=== PATIENT | male | born 1940 | race Caucasian/White ===

== ENCOUNTER 2020-10-24 22:18 | Emergency (ER) | payer MEDICARE, OTHER ==
--- NOTE | 2020-10-24 22:25 | ED Cardiac General ---
History of Present Illness General Stated Complaint: SOA Source: patient, EMS History of Present Illness Date Seen by Provider: Oct 24, 2020 Time Seen by Provider: 22:19 80-year-old male with hypertension, diabetes, coronary artery disease status post CABG x5 and most recent stress test 3 to 4 months ago that was normal presents with dizziness. Patient states that he was at home and get up which caused him to feel off balance so he sat down and felt like he was shaky and concerned he may have had low blood sugar. His gave him a bunch of sweets to eat and called EMS and by the time they arrived his blood sugar was 109. The dizziness is not rotational and is worse with standing improves lying flat. Patient states he is having some shortness of air as well. Worse than normal, no orthopnea, no cough, fevers. Patient denies any numbness, tingling, weakness. No other complaints. Allergies and Home Medications Allergies Coded Allergies: Penicillins (Verified Allergy, Unknown, 10/24/20) Patient Home Medication List Home Medication List Reviewed: Yes Review of Systems Review of Systems Constitutional: No chills; dizziness; No fever EENTM: No Blurred Vision, No Double Vision Respiratory: Denies Cough, Denies Orthopnea; Shortness of Air Cardiovascular: Denies Chest Pain, Denies Edema, Denies Irregular Heart Rate Gastrointestinal: Denies Abdomen Distended, Denies Abdominal Pain, Denies Constipated, Denies Diarrhea, Denies Nausea, Denies Vomiting Genitourinary: Denies Burning Skin: No lesions, No rash Psychiatric/Neurological: Denies Headache, Denies Numbness, Denies Paresthesia, Denies Weakness All Other Systems Reviewed Negative Unless Noted: Yes Past Nfvblyk-Jkbktq-Fnmkgu Hx Past Med/Social Hx: Reviewed Nursing Past Med/Soc Hx Patient Social History Alcohol Use: Regular Use Alcohol Beverage of Choice: Wine Smoking Status: Never a Smoker Past Medical History CABG, Orthopedic Respiratory: No Coronary Artery Disease, Hypertension Neurological: No Reproductive Disorders: No Sexually Transmitted Disease: No HIV/AIDS: No Genitourinary: No Gastrointestinal: No Musculoskeletal: No Diabetes, Non-Insulin dep Family Medical History Reviewed Nursing Family Hx Physical Exam Vital Signs Vital Signs - First Documented 10/24/20 22:18 Temp 36.4 Pulse 81 Resp 18 B/P (MAP) 177/68 (104) Pulse Ox 98 O2 Delivery Room Air Capillary Refill : 3 Height, Weight, BMI Height: '" Weight: lbs. oz. kg; BMI Method: General Appearance: No Apparent Distress, WD/WN HEENT: PERRL/EOMI, Normal ENT Inspection, Pharynx Normal Neck: Full Range of Motion, Normal Inspection, Non Tender, Supple; No JVD Respiratory: Chest Non Tender, Lungs Clear, Normal Breath Sounds, No Accessory Muscle Use Cardiovascular: Regular Rate, Rhythm, No Edema, No Murmur, Normal Peripheral Pulses Gastrointestinal: Normal Bowel Sounds Extremity: Normal Capillary Refill, Normal Inspection Neurologic/Psychiatric: Alert, Oriented x3, No Motor/Sensory Deficits, Normal Mood/Affect, profiler II-XII Norm as Tested Skin: Normal Color, Warm/Dry Lymphatic: No Adenopathy Progress/Results/Core Measures Results/Orders Lab Results Laboratory Tests Test 10/24/20 22:25 Range/Units White Blood Count 6.1 4.3-11.0 10^3/uL Red Blood Count 3.95 L 4.35-5.85 10^6/uL Hemoglobin 11.6 L 13.3-17.7 G/DL Hematocrit 35 L 40-54 % Mean Corpuscular Volume 89 80-99 FL Mean Corpuscular Hemoglobin 29 25-34 PG Mean Corpuscular Hemoglobin Concent 33 32-36 G/DL Red Cell Distribution Width 12.9 10.0-14.5 % Platelet Count 312 130-400 10^3/uL Mean Platelet Volume 10.1 7.4-10.4 FL Immature Granulocyte % (Auto) 1 % Neutrophils (%) (Auto) 43 42-75 % Lymphocytes (%) (Auto) 38 12-44 % Monocytes (%) (Auto) 13 H 0-12 % Eosinophils (%) (Auto) 5 0-10 % Basophils (%) (Auto) 1 0-10 % Neutrophils # (Auto) 2.6 1.8-7.8 X 10^3 Lymphocytes # (Auto) 2.3 1.0-4.0 X 10^3 Monocytes # (Auto) 0.8 0.0-1.0 X 10^3 Eosinophils # (Auto) 0.3 0.0-0.3 10^3/uL Basophils # (Auto) 0.1 0.0-0.1 10^3/uL Immature Granulocyte # (Auto) 0.0 0.0-0.1 10^3/uL Prothrombin Time 12.7 12.2-14.7 SEC INR Comment 0.9 0.8-1.4 Activated Partial Thromboplast Time 25 24-35 SEC D-Dimer 0.26 0.00-0.49 UG/ML Sodium Level 135 135-145 MMOL/L Potassium Level 4.1 3.6-5.0 MMOL/L Chloride Level 101 98-107 MMOL/L Carbon Dioxide Level 23 21-32 MMOL/L Anion Gap 11 5-14 MMOL/L Blood Urea Nitrogen 24 H 7-18 MG/DL Creatinine 1.61 H 0.60-1.30 MG/DL Estimat Glomerular Filtration Rate 42 BUN/Creatinine Ratio 15 Glucose Level 122 H 70-105 MG/DL Calcium Level 9.1 8.5-10.1 MG/DL Corrected Calcium 8.9 8.5-10.1 MG/DL Magnesium Level 1.5 L 1.6-2.4 MG/DL Total Bilirubin 0.2 0.1-1.0 MG/DL Aspartate Amino Transf (AST/SGOT) 12 5-34 U/L Alanine Aminotransferase (ALT/SGPT) 14 0-55 U/L Alkaline Phosphatase 109 40-136 U/L Troponin I < 0.30 <0.30 NG/ML Pro-B-Type Natriuretic Peptide 163.8 H <75.0 PG/ML Total Protein 6.8 6.4-8.2 GM/DL Albumin 4.2 3.2-4.5 GM/DL My Orders Orders - WALI COTTO MD Cbc With Automated Diff (10/24/20 22:21) Magnesium (10/24/20 22:21) Chest 1 View Ap/Pa Only (10/24/20 22:21) Ekg Tracing (10/24/20 22:21) Comprehensive Metabolic Panel (10/24/20 22:21) Protime With Inr (10/24/20 22:21) Partial Thromboplastin Time (10/24/20 22:21) O2 (10/24/20 22:21) Monitor-Rhythm Ecg Trace Only (10/24/20 22:21) Ed Iv/Invasive Line Start (10/24/20 22:21) Troponin I Fs (10/24/20 22:21) Probnp Fs (10/24/20 22:21) Orthostatic Vital Signs (Adult (10/24/20 22:21) Fibrin Degradation Products (10/24/20 22:21) Lactated Ringers (Lr 1000 Ml Iv Solution (10/24/20 22:45) Vital Signs/I&O 10/24/20 10/24/20 22:18 22:46 Temp 36.4 Pulse 81 64 68 79 Resp 18 B/P (MAP) 177/68 (104) 138/60 (86) 139/61 (87) 155/67 (96) Pulse Ox 98 O2 Delivery Room Air Progress Progress Note : Progress Note 2300 - pt feeling better. at bedside. discussed prelim normal results. will recheck after ivf infusion 2324 -patient feels back to baseline. 80-year-old male with history of CAD, hypertension, diabetes presenting with dizziness and shortness of air. Symptoms of all resolved since arrival. Chest x-ray negative for pneumonia, pleural effusions, signs of CHF exacerbation. Lab work-up reassuring with normal D-dimer to help exclude PE, normal electrolytes, normal EKG and troponin to help rule out ACS. Creatinine is 1.6 without known baseline. Discussed need to push fluids and have her labs rechecked this week. Recommend increase fluid intake and see PCP this week. Patient voiced understanding and agreed with plan of care. Discussed reasons to return to the emergency room. Initial ECG Impression Date: Oct 24, 2020 Initial ECG Impression Time: 22:26 Initial ECG Rate: 66 Initial ECG Rhythm: Normal Sinus Initial ECG Intervals: QRS (normal) Initial ECG Impression: 1st Degree AV Block Diagnostic Imaging Diagonstic Imaging: Xray Plain Films/CT/US/NM/MRI: chest Comments no acute findings Reviewed: Reviewed by Me Departure Impression Primary Impression: Dizziness Additional Impressions: Orthostatic hypotension Shortness of breath Disposition: HOME, SELF-CARE Condition: Improved Departure-Patient Inst. Decision time for Depature: 23:28 Patient Instructions: Vertigo (a Type of Dizziness), Orthostatic Hypotension WALI COTTO MD Oct 24, 2020 22:25
[2020-10-24 22:32] LABS: BASOPHILS # (AUTO) 0.1 10^3/uL (0.0-0.1); BASOPHILS % (AUTO) 1 % (0-10); EOSINOPHILS # (AUTO) 0.3 10^3/uL (0.0-0.3); EOSINOPHILS % (AUTO) 5 % (0-10); HEMATOCRIT 35 % (40-54); HEMOGLOBIN 11.6 G/DL (13.3-17.7); LYMPHOCYTES # (AUTO) 2.3 X 10^3 (1.0-4.0); LYMPHOCYTES % (AUTO) 38 % (12-44); MEAN CORPUSCULAR HEMOGLOBIN 29 PG (25-34); MEAN CORPUSCULAR HGB CONC 33 G/DL (32-36); MEAN CORPUSCULAR VOLUME 89 FL (80-99); MEAN PLATELET VOLUME 10.1 FL (7.4-10.4); MONOCYTES # (AUTO) 0.8 X 10^3 (0.0-1.0); MONOCYTES % (AUTO) 13 % (0-12); NEUTROPHILS # (AUTO) 2.6 X 10^3 (1.8-7.8); NEUTROPHILS % (AUTO) 43 % (42-75); PLATELET COUNT 312 10^3/uL (130-400); WHITE BLOOD COUNT 6.1 10^3/uL (4.3-11.0)
[2020-10-24 22:44] LABS: INR 0.9 (0.8-1.4); PROTHROMBIN TIME PATIENT 12.7 SEC (12.2-14.7)
[2020-10-24] MEDS ORDERED: LACTATED RINGERS 1,000 ML IV SCH (22:45)
[2020-10-24 22:46] VITALS: BP_SYST 138; BP_SYST 139; BP_SYST 155; BP_DIAS 60; BP_DIAS 61; BP_DIAS 67
[2020-10-24 22:51] LABS: CALCIUM 9.1 MG/DL (8.5-10.1); CREATININE SERUM 1.61 MG/DL (0.60-1.30); POTASSIUM 4.1 MMOL/L (3.6-5.0)
[2020-10-24 22:52] LABS: ALBUMIN 4.2 GM/DL (3.2-4.5); BILIRUBIN,TOTAL 0.2 MG/DL (0.1-1.0); MAGNESIUM 1.5 MG/DL (1.6-2.4); TOTAL PROTEIN 6.8 GM/DL (6.4-8.2)
[2020-10-24 23:29] VITALS: BP 125/56
--- NOTE | 2020-10-25 06:28 | Diagnostic Imaging Report ---
INDICATION: Coronary disease. COMPARISON: None. FINDINGS: Single view of the chest demonstrates clear lungs bilaterally. The heart is normal. There is no pneumothorax but osseous structures normal. Sternal wires midline. IMPRESSION: Negative chest. Dictated by: Dictated on workstation # [id number]
== END 2020-10-24 23:38 | disposition home or self-care (01) ==
LOC: ER FS 22:24
DX: I95.1 Orthostatic hypotension (principal); I25.10 Atherosclerotic heart disease of native coronary artery without angina pectoris; E11.9 Type 2 diabetes mellitus without complications; Z95.1 Presence of aortocoronary bypass graft
CPT/HCPCS: 36415; 71045; 80053; 83735; 83880; 84484; 85025; 85379; 85610; 85730; 93005; 93041; 96360

== ENCOUNTER 2022-06-06 06:05 | Inpatient (IN) | payer MEDICARE, OTHER ==
[~2022-06-06] VITALS: Ht 175.2 cm; Wt 84.0 kg
[2022-06-06] MEDS ORDERED: NS IV 500 ML 500 ML IV STA (06:17)
--- NOTE | 2022-06-06 06:22 | ED General ---
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 He states he was walking down the stairs night, the steps were very narrow, he missed 1 and fell down at least 3 steps hitting his head. He did not have any headache or symptoms that night so he did not see anybody. Starting later that night however, he started to feel dizzy where the room was spinning when he would move. Seems worse in the morning when he is trying to get up. He was try to get up this morning, the room was spinning, he felt dizzy, and he called EMS. Similar happened roughly 20 years ago with no formal diagnosis. He denies any acute hearing loss, ear ringing, weakness, numbness, vision changes when he is sitting still, nausea, vomiting, chest pain, shortness of breath, abdominal pain, rash, or any other concerns. He denies being sick recently. He takes a baby aspirin daily but no blood thinners. Allergies and Home Medications Allergies Coded Allergies: Penicillins (Verified Allergy, Unknown, 10/24/20) Patient Home Medication List Home Medication List Reviewed: Yes Aspirin (Aspirin EC) 81 Mg Tablet.dr, 81 MG PO DAILY, (Reported) Entered as Reported by: JARED TORRES on 06/06/221414 Last Action: Reviewed Carvedilol (Carvedilol) 3.125 Mg Tablet, 3.125 MG PO BID, (Reported) Entered as Reported by: JARED TORRES on 06/06/221414 Last Action: Reviewed Fenofibrate (Fenofibrate) 160 Mg Tablet, 160 MG PO DAILY, (Reported) Entered as Reported by: JARED TORRES on 06/06/221414 Last Action: Reviewed Insulin Detemir (Levemir Flextouch) 100 Unit/Ml (3 Ml) Insuln.pen, 34 UNITS SC HS, (Reported) Entered as Reported by: JARED TORRES on 06/06/221414 Last Action: Reviewed Levothyroxine Sodium (Levothyroxine Sodium) 50 Mcg Tablet, 50 MCG PO DAILY, (Reported) Entered as Reported by: JARED TORRES on 06/06/221414 Last Action: Reviewed Meclizine HCl (Meclizine HCl) 25 Mg Tablet, 25 MG PO Q12H PRN for VERTIGO Prescribed by: TRICE ANNA on 06/06/22644 Last Action: Reviewed Metformin HCl (Metformin HCl) 1,000 Mg Tablet, 1,000 MG PO BID, (Reported) Entered as Reported by: JARED TORRES on 06/06/221414 Last Action: Reviewed Ondansetron (Ondansetron Odt) 4 Mg Tab.rapdis, 4 MG SL Q6H PRN for NAUSEA/VOMITING Prescribed by: TRICE ANNA on 06/06/22644 Last Action: Reviewed Sertraline HCl (Sertraline HCl) 50 Mg Tablet, 50 MG PO DAILY, (Reported) Entered as Reported by: JARED TORRES on 06/06/221414 Last Action: Reviewed Simvastatin (Simvastatin) 80 Mg Tablet, 80 MG PO HS, (Reported) Entered as Reported by: JARED TORRES on 06/06/221414 Last Action: Reviewed Tamsulosin HCl (Flomax) 0.4 Mg Cap, 0.4 MG PO 1700 BEFORE DINNER, (Reported) Entered as Reported by: JARED TORRES on 06/06/221414 Last Action: Reviewed Ubidecarenone (Coq-10) 100 Mg Capsule, 100 MG PO DAILY, (Reported) Entered as Reported by: JARED TORRES on 06/06/221414 Last Action: Reviewed Review of Systems Review of Systems Constitutional: No fever EENTM: other (Vertigo) Respiratory: no symptoms reported Cardiovascular: no symptoms reported Gastrointestinal: no symptoms reported Genitourinary: no symptoms reported Musculoskeletal: no symptoms reported Skin: no symptoms reported Psychiatric/Neurological: See HPI Hematologic/Lymphatic: No Symptoms Reported Immunological/Allergic: no symptoms reported All Other Systems Reviewed Negative Unless Noted: Yes Past Uhbkrmt-Rmfopy-Ivonhh Hx Patient Social History Tobacco Use?: No Use of E-Cig and/or Vaping dev: No Substance use?: No Alcohol Use?: No Pt feels they are or have been: No Past Medical History Surgeries: Yes Cardiac Respiratory: No Cardiac: Yes High Cholesterol, Hypertension Neurological: No Reproductive Disorders: No Sexually Transmitted Disease: No HIV/AIDS: No Genitourinary: No Gastrointestinal: No Musculoskeletal: No Endocrine: Yes Diabetes, Insulin dep HEENT: No Cancer: No Psychosocial: No Integumentary: No Blood Disorders: No Physical Exam Vital Signs Vital Signs - First Documented 06/06/22 06:07 Temp 36.3 Pulse 68 Resp 18 B/P (MAP) 180/87 (118) Pulse Ox 99 O2 Delivery Room Air Capillary Refill : Height, Weight, BMI Height: '" Weight: lbs. oz. kg; BMI Method: General Appearance: No Apparent Distress, WD/WN Eyes: Bilateral Eye Normal Inspection, Bilateral Eye PERRL, Bilateral Eye EOMI HEENT: PERRL/EOMI, TMs Normal, Normal ENT Inspection, Pharynx Normal Neck: Full Range of Motion, Normal Inspection, Non Tender, Supple Respiratory: Chest Non Tender, Lungs Clear, Normal Breath Sounds, No Accessory Muscle Use, No Respiratory Distress Cardiovascular: Regular Rate, Rhythm, No Edema, Normal Peripheral Pulses Gastrointestinal: Normal Bowel Sounds, Non Tender, Soft; No Distended, No Guarding Back: Normal Inspection, No CVA Tenderness, No Vertebral Tenderness Extremity: Normal Capillary Refill, Normal Inspection, Normal Range of Motion, Non Tender, No Calf Tenderness, No Pedal Edema Neurologic/Psychiatric: Alert, Oriented x3, No Motor/Sensory Deficits, Normal Mood/Affect, emergency doctor II-XII Norm as Tested, Other (Normal upwalb-vr-puze, normal eknk-md-fblh, normal word finding, positive head impulse test, lateral gaze nystagmus, negative test of skew) Skin: Normal Color, Warm/Dry Lymphatic: No Adenopathy Progress/Results/Core Measures Suspected Sepsis SIRS Temperature: Pulse: Respiratory Rate: Laboratory Tests 06/06/22 06:14: White Blood Count 5.8 Blood Pressure / Mean: Laboratory Tests 06/06/22 06:14: Creatinine 1.23, INR Comment 0.9, Platelet Count 350, Total Bilirubin 0.4 Results/Orders Lab Results Laboratory Tests Test 06/06/22 06:14 Range/Units White Blood Count 5.8 4.3-11.0 10^3/uL Red Blood Count 3.97 L 4.30-5.52 10^6/uL Hemoglobin 11.9 L 13.3-17.7 g/dL Hematocrit 34 L 40-54 % Mean Corpuscular Volume 85 80-99 fL Mean Corpuscular Hemoglobin 30 25-34 pg Mean Corpuscular Hemoglobin Concent 35 32-36 g/dL Red Cell Distribution Width 12.4 10.0-14.5 % Platelet Count 350 130-400 10^3/uL Mean Platelet Volume 11.8 9.0-12.2 fL Immature Granulocyte % (Auto) 0 % Neutrophils (%) (Auto) 43 42-75 % Lymphocytes (%) (Auto) 40 12-44 % Monocytes (%) (Auto) 10 0-12 % Eosinophils (%) (Auto) 6 0-10 % Basophils (%) (Auto) 1 0-10 % Neutrophils # (Auto) 2.5 1.8-7.8 10^3/uL Lymphocytes # (Auto) 2.3 1.0-4.0 10^3/uL Monocytes # (Auto) 0.6 0.0-1.0 10^3/uL Eosinophils # (Auto) 0.3 0.0-0.3 10^3/uL Basophils # (Auto) 0.1 0.0-0.1 10^3/uL Immature Granulocyte # (Auto) 0.0 0.0-0.1 10^3/uL Prothrombin Time 12.5 12.2-14.7 SEC INR Comment 0.9 0.8-1.4 Activated Partial Thromboplast Time 25 24-35 SEC Sodium Level 132 L 135-145 MMOL/L Potassium Level 6.1 H 3.6-5.0 MMOL/L Chloride Level 99 98-107 MMOL/L Carbon Dioxide Level 21 21-32 MMOL/L Anion Gap 12 5-14 MMOL/L Blood Urea Nitrogen 18 7-18 MG/DL Creatinine 1.23 0.60-1.30 MG/DL Estimat Glomerular Filtration Rate 59 BUN/Creatinine Ratio 15 Glucose Level 221 H 70-105 MG/DL Calcium Level 8.8 8.5-10.1 MG/DL Corrected Calcium 8.9 8.5-10.1 MG/DL Magnesium Level 1.8 1.6-2.4 MG/DL Total Bilirubin 0.4 0.1-1.0 MG/DL Aspartate Amino Transf (AST/SGOT) 50 H 5-34 U/L Alanine Aminotransferase (ALT/SGPT) 17 0-55 U/L Alkaline Phosphatase 120 40-136 U/L Troponin I 0.36 *H <0.30 NG/ML Total Protein 7.2 6.4-8.2 GM/DL Albumin 3.9 3.2-4.5 GM/DL My Orders Orders - TRICE ANNA MD Cbc With Automated Diff (06/06/22 06:17) Comprehensive Metabolic Panel (06/06/22 06:17) Magnesium (06/06/22 06:17) Protime With Inr (06/06/22 06:17) Partial Thromboplastin Time (06/06/22 06:17) Troponin I Fs (06/06/22 06:17) Ct Head Wo (06/06/22 06:17) Ns Iv 500 Ml (Sodium Chloride 0.9%) (06/06/22 06:17) Meclizine Tablet (Antivert Tablet) (06/06/22 06:30) Ondansetron Injection (Zofran Injectio (06/06/22 06:30) Ekg Tracing (06/06/22 06:17) Ed Iv/Invasive Line Start (06/06/22 06:37) Aspirin Chewable Tablet (Baby Aspirin Ch (06/06/22 07:15) Chest 1 View Ap/Pa Only (06/06/22 07:01) Medications Given in ED Vital Signs/I&O 06/06/22 06/06/22 06:07 07:47 Temp 36.3 36.5 Pulse 68 63 Resp 18 16 B/P (MAP) 180/87 (118) 167/82 Pulse Ox 99 99 O2 Delivery Room Air Room Air Capillary Refill : Progress Note : Progress Note 82-year-old male presenting after a remote fall last week as well as dizziness. ABCs were intact and vitals were stable on presentation. Neuro exam is completely intact with no focal deficits. He does get vertigo with changing in positions of his head which fits more of a peripheral cause of his vertigo. No recent illness, no hearing loss, no ringing in his ears making vestibular neuritis and labyrinthitis less likely. Denies any chest pain or concerning symptoms associated with that. CT head ordered since he fell and hit his head. Basic labs obtained to assess electrolytes. Given some fluids, meclizine, and Zofran. Rosaura-Hallpike was positive and symptoms did improve some with the Giovani maneuver. Unfortunately his troponin was positive. Given his cardiac history it is possible he had a cardiac event. Called Dr. Jeffries and Dr. Choi to discuss the case. The patient will be admitted for further evaluation and management. ECG Initial ECG Impression Date: Jun 06, 2022 Initial ECG Impression Time: 06:32 Initial ECG Rate: 59 Initial ECG Rhythm: S.Dieter Comment Narrow QRS, borderline normal axis, no significant ST changes, T wave flattening in the inferior and lateral leads, appears similar to prior EKG Diagnostic Imaging Diagonstic Imaging: CT (head) Departure Impression Primary Impression: NSTEMI (non-ST elevated myocardial infarction) Additional Impression: Dizziness Disposition: 30 STILL A PATIENT Condition: Stable Admissions Decision to Admit Reason: Admit from ER (General) Decision to Admit/Date: Jun 06, 2022 Time/Decision to Admit Time: 06:55 Transfer Method of Transfer: EMS Departure-Patient Inst. Decision time for Depature: 07:10 Referrals: DEISI AMIN MD NO,LOCAL PHYSICIAN (PCP) Primary Care Physician Scripts Ondansetron (Ondansetron Odt) 4 Mg Tab.rapdis 4 MG SL Q6H PRN for NAUSEA/VOMITING for 5 Days, #20 TAB Prov: TRICE ANNA MD 06/06/22 Meclizine HCl (Meclizine HCl) 25 Mg Tablet 25 MG PO Q12H PRN for VERTIGO for 14 Days, #28 TAB Prov: TRICE ANNA MD 06/06/22 TRICE ANNA MD Jun 06, 2022 06:22
[2022-06-06 06:29] LABS: BASOPHILS # (AUTO) 0.1 10^3/uL (0.0-0.1); BASOPHILS % (AUTO) 1 % (0-10); EOSINOPHILS # (AUTO) 0.3 10^3/uL (0.0-0.3); EOSINOPHILS % (AUTO) 6 % (0-10); HEMATOCRIT 34 % (40-54); HEMOGLOBIN 11.9 g/dL (13.3-17.7); LYMPHOCYTES # (AUTO) 2.3 10^3/uL (1.0-4.0); LYMPHOCYTES % (AUTO) 40 % (12-44); MEAN CORPUSCULAR HEMOGLOBIN 30 pg (25-34); MEAN CORPUSCULAR HGB CONC 35 g/dL (32-36); MEAN CORPUSCULAR VOLUME 85 fL (80-99); MEAN PLATELET VOLUME 11.8 fL (9.0-12.2); MONOCYTES # (AUTO) 0.6 10^3/uL (0.0-1.0); MONOCYTES % (AUTO) 10 % (0-12); NEUTROPHILS # (AUTO) 2.5 10^3/uL (1.8-7.8); NEUTROPHILS % (AUTO) 43 % (42-75); PLATELET COUNT 350 10^3/uL (130-400); WHITE BLOOD COUNT 5.8 10^3/uL (4.3-11.0)
[2022-06-06] MEDS ORDERED: MECLIZINE 25 MG (ANTIVERT) TAB PO ONE (06:30)
[2022-06-06] MEDS ORDERED: ONDANSETRON 4 MG/2 ML (SDV) Z0FRAN IVP ONE (06:30)
[2022-06-06 06:44] LABS: INR 0.9 (0.8-1.4); PROTHROMBIN TIME PATIENT 12.5 SEC (12.2-14.7)
[2022-06-06] MEDS ORDERED: MECL-149 PO (06:45)
[2022-06-06] MEDS ORDERED: ONDA4TAB11 SL (06:45)
[2022-06-06 06:50] LABS: POTASSIUM 6.1 MMOL/L (3.6-5.0)
[2022-06-06 06:52] LABS: BILIRUBIN,TOTAL 0.4 MG/DL (0.1-1.0); CALCIUM 8.8 MG/DL (8.5-10.1); CREATININE SERUM 1.23 MG/DL (0.60-1.30); MAGNESIUM 1.8 MG/DL (1.6-2.4)
[2022-06-06 06:55] LABS: ALBUMIN 3.9 GM/DL (3.2-4.5); TOTAL PROTEIN 7.2 GM/DL (6.4-8.2)
--- NOTE | 2022-06-06 07:07 | Diagnostic Imaging Report ---
PROCEDURE: CT head without contrast. TECHNIQUE: Multiple contiguous axial images were obtained through the brain without the use of intravenous contrast. Auto Exposure Controls were utilized during the CT exam to meet ALARA standards for radiation dose reduction. INDICATION: Dizziness x1 week after a fall The ventricles are normal in size, shape and position. There are no masses or hemorrhages. There are no extra-axial fluid collections. There are no skull fractures seen. There is a lacunar infarct in the right basal ganglia. The more inferior component of this has undergone cystic transformation consistent with a chronic infarct. The more superior portion is hypodense but less distinct and could be a subacute component. IMPRESSION: Large lacunar infarct right basal ganglia at least partially old but an acute component cannot be excluded. If there is clinical question further evaluation with MRI would be more sensitive. Dictated by: Dictated on workstation # [id number]
[2022-06-06] MEDS ORDERED: ASPIRIN 81 MG CHEW (CHILDREN'S ASA) PO ONE (07:15)
--- NOTE | 2022-06-06 07:48 | Diagnostic Imaging Report ---
Indication: 82-year-old male with myocardial infarction Comparisons: 10/25/2020 Findings: Single view of the chest shows normal heart, pleura and diaphragms. No consolidations are seen. There is no effusion or pneumothorax. There is aortic calcific atherosclerosis. There is a previous median sternotomy. Soft tissues and bony thorax are unchanged. IMPRESSION: 1. No acute cardiac pulmonary changes by plain radiographic criteria. 2. There is a previous CABG. Dictated by: Dictated on workstation # [id number]
[2022-06-06] MEDS ORDERED: CATHETER FLUSH 10 ML SYR IV PRN (09:00)
--- NOTE | 2022-06-06 09:11 | Consultation-Cardiology ---
HPI-Cardiology Cardiology Consultation: Date of Consultation 06/06/22 Time Seen by a Provider: 08:30 Date of Admission 06-06-22 Attending Physician Roland Martinez MD Admitting Physician Admitting Physician: Jennifer Jeffries MD Attending Physician: Jennifer Jeffries MD Consulting Physician Cholo Choi MD HPI: Chief Complaint: Dizziness Mr. Mahmood is an 82 yr old male who has been admitted to [facility] from the [facility] ED. He reports last week he was going into the basement when he mis-stepped and fell hitting his head. He denies any loss of consciousness. He denies any c/o CP, SOB, palpitations, syncope or near syncope. He reports he had significant dizziness following his fall that would resolve when he would sit down and hold on to something. He reports the dizziness did improve over a few days. However this morning he developed significant dizziness that would not resolve. He reports his brought him to the ED this morning. He states the dizziness is better, but not completely resolved. No c/o syncope or near syncope. He sees Dr. Summers at [facility] in [place] for cardiology care. He reports he saw him approx 8 months ago at which time he had a stress test and echo which he reports were normal. Review of Systems-Cardiology Review of Systems Constitutional: No chills, No fever, No malaise Eyes: No vision change Ears/Nose/Throat: No epistaxis, No recent hearing loss Respiratory: As described under HPI Cardiovascular: As described under HPI Gastrointestinal: No constipation, No diarrhea, No nausea, No vomiting Genitourinary: No dysuria, No hematuria Musculoskeletal: no symptoms reported Skin: No rash on exposed areas, No ulcerations on exposed areas Psychiatric/Neurological: As described under HPI; No anxiety, No depression, No seizure, No focal weakness, No syncope Hematologic: No bleeding abnormalities All Other Systems Reviewed Negative Unless Noted: Yes AWA-Tliysg-Jyzolx Hx Patient Social History Have you traveled recently?: No Alcohol Use?: No Pt feels they are or have been: No Past Medical History PMH As described under Assessment. Family Medical History Family Medical History: He reports his father had CAD dx in his 40's. He reports a brother with CAD. Allergies and Home Medications Allergies Coded Allergies: Penicillins (Verified Allergy, Unknown, 10/24/20) Patient Home Medication List Meclizine HCl (Meclizine HCl) 25 Mg Tablet, 25 MG PO Q12H PRN for VERTIGO Prescribed by: TRICE ANNA on 06/06/2245 Ondansetron (Ondansetron Odt) 4 Mg Tab.rapdis, 4 MG SL Q6H PRN for NAUSEA/VOMITING Prescribed by: TRICE ANNA on 06/06/2245 Physical Exam-Cardiology Physical Exam Vital Signs/I&O 06/06/22 06/06/22 06:07 07:47 Temp 36.3 36.5 Pulse 68 63 Resp 18 16 B/P (MAP) 180/87 (118) 167/82 Pulse Ox 99 99 O2 Delivery Room Air Room Air Capillary Refill : Less Than 3 Seconds Constitutional: AAO x 3, well-developed, well-nourished HEENT: PERRL, hearing is well preserved, oral hygience is good Neck: No carotid bruit; carotid pulses are 2 + bilaterally Respiratory: No accessory muscle use, No respiratory distress; chest expansion is symmetric, chest is bilaterally symmetric, lungs clear to auscultation Cardiovascular: regular rate-rhythm; No JVD; S1 and S2 Gastrointestinal: No tender; soft, round, audible bowel sounds Extremities: no lower extremity edema bilateral Neurologic/Psychiatric: grossly intact (moves all extremities) Skin: No rash on exposed areas, No ulcerations on exposed areas Data Review Labs Laboratory Tests 06/06/22 06:14: White Blood Count 5.8, Red Blood Count 3.97L, Hemoglobin 11.9L, Hematocrit 34L, Mean Corpuscular Volume 85, Mean Corpuscular Hemoglobin 30, Mean Corpuscular Hemoglobin Concent 35, Red Cell Distribution Width 12.4, Platelet Count 350, Mean Platelet Volume 11.8, Immature Granulocyte % (Auto) 0, Neutrophils (%) ( Auto) 43, Lymphocytes (%) (Auto) 40, Monocytes (%) (Auto) 10, Eosinophils (%) (Auto) 6, Basophils (%) (Auto) 1, Neutrophils # (Auto) 2.5, Lymphocytes # (Auto) 2.3, Monocytes # (Auto) 0.6, Eosinophils # (Auto) 0.3, Basophils # (Auto) 0.1, Immature Granulocyte # (Auto) 0.0, Prothrombin Time 12.5, INR Comment 0.9, Activated Partial Thromboplast Time 25, Sodium Level 132L, Potassium Level 6.1H, Chloride Level 99, Carbon Dioxide Level 21, Anion Gap 12, Blood Urea Nitrogen 18, Creatinine 1.23, Estimat Glomerular Filtration Rate 59, BUN/Creatinine Ratio 15, Glucose Level 221H, Calcium Level 8.8, Corrected Calcium 8.9, Magnesium Level 1.8, Total Bilirubin 0.4, Aspartate Amino Transf (AST/SGOT) 50H, Alanine Aminotransferase (ALT/SGPT) 17, Alkaline Phosphatase 120, Troponin I 0.36*H, Total Protein 7.2, Albumin 3.9 Laboratory Tests 06/06/22 06:14 Radiology NAME: MITESH MAHMOOD V MED REC#: [id number] PT STATUS: REG ER : 1940 PHYSICIAN: TRICE ANNA MD ADMIT DATE: 06/06/22/ER FS Signed Date of Exam:06/06/22 CT HEAD WO PROCEDURE: CT head without contrast. TECHNIQUE: Multiple contiguous axial images were obtained through the brain without the use of intravenous contrast. Auto Exposure Controls were utilized during the CT exam to meet ALARA standards for radiation dose reduction. INDICATION: Dizziness x1 week after a fall The ventricles are normal in size, shape and position. There are no masses or hemorrhages. There are no extra-axial fluid collections. There are no skull fractures seen. There is a lacunar infarct in the right basal ganglia. The more inferior component of this has undergone cystic transformation consistent with a chronic infarct. The more superior portion is hypodense but less distinct and could be a subacute component. IMPRESSION: Large lacunar infarct right basal ganglia at least partially old but an acute component cannot be excluded. If there is clinical question further evaluation with MRI would be more sensitive. Dictated by: Dictated on workstation # [id number] Dict: 06/06/22701 Trans: 06/06/22705 [facility] [id number] Interpreted by: TIFFANY OLIVEIRA MD Electronically signed by: TIFFANY OLIVEIRA MD 06/06/22705 NAME: MITESH MAHMOOD V MED REC#: [id number] PT STATUS: REG ER : 1940 PHYSICIAN: TRICE ANNA MD ADMIT DATE: 06/06/22/ER FS Draft Date of Exam:06/06/22 CHEST 1 VIEW AP/PA ONLY Indication: 82-year-old male with myocardial infarction Comparisons: 10/25/2020 Findings: Single view of the chest shows normal heart, pleura and diaphragms. No consolidations are seen. There is no effusion or pneumothorax. There is aortic calcific atherosclerosis. There is a previous median sternotomy. Soft tissues and bony thorax are unchanged. IMPRESSION: 1. No acute cardiac pulmonary changes by plain radiographic criteria. 2. There is a previous CABG. Dictated on workstation # [id number] Dict: 06/06/2209 Trans: 06/06/22 0747 [facility] [id number] Interpreted by: CELY MCMAHON MD Electronically signed by: ECG Impression ECG Initial ECG Impression: Sinus Bradycardia A/P-Cardiology Assessment/Admission Diagnosis S/P mechanical fall Dizziness of undetermined etiology post fall Mildly elevated troponin - no c/o CP H/O CAD - CABG x 5 vessel approx 7 yrs ago at [facility] - reports stress test approx 8 months ago at [facility] which was normal H/O CVA approx 15 yrs ago - ? new CVA according to CT done today - awaiting MRI - management per medical services HLD DM 2 DICK DUMAS Jun 06, 2022 09:11
[2022-06-06] MEDS ORDERED: GADOTERATE 0.5 MMOL/ML (CLARISCAN) 20 ML VIAL IV ONE (09:30)
[2022-06-06 09:46] VITALS: BP 167/82
--- NOTE | 2022-06-06 10:02 | Diagnostic Imaging Report ---
PROCEDURE: MR imaging of the brain with and without contrast. TECHNIQUE: Multiplanar, multisequence MR imaging of the brain was performed with and without contrast. INDICATION: Dizziness. Fall down a flight of stairs. COMPARISON: CT head on 06/06/2022. FINDINGS: No acute ischemia, mass, or hemorrhage. No abnormal enhancement. Old lacunar infarct is seen in the right basal ganglia. There is surrounding gliosis. Additional focal areas of T2 hyperintense signal are scattered in the periventricular and subcortical white matter. The ventricles and cortical sulci are mildly prominent. The basilar cisterns are symmetric and unremarkable. The sellar and suprasellar regions have a normal appearance. The brainstem and posterior fossa are unremarkable. Retained secretions are seen in the anterior ethmoid sinuses and bilateral maxillary sinuses. The mastoid air cells demonstrate normal signal characteristics. The globes and orbits are symmetric and unremarkable. The scalp and calvarium have a normal appearance. IMPRESSION: 1. No acute ischemia, mass, or hemorrhage. No abnormal enhancement. 2. Old lacunar infarct in the right basal ganglia. 3. Scattered chronic microvascular disease in the periventricular and subcortical white matter. 4. Mild parenchymal volume loss. 5. Paranasal sinus disease involving the bilateral ethmoid and maxillary sinuses. Dictated by: Dictated on workstation # [id number]
[2022-06-06] MEDS ORDERED: RT-ALBUTEROL SULF 2.5 MG/3 ML PRE-MIX VIAL INH PRN (10:30)
[2022-06-06] MEDS ORDERED: inSUlin ASPART (NovoLOG) 1 UNIT/0.01 ML (CHARGE PER UNIT) SC SCH (11:00)
[2022-06-06 11:54] VITALS: BP 168/73
--- NOTE | 2022-06-06 13:03 | Short Stay Summary ---
ANURADHA RAMON MED STUDENT 06/06/22 1303: History of Present Illness History of Present Illness Reason for visit/HPI Luiz Mahmood is an 82 yo male admitted from [facility] ED for dizziness with incidental finding of elevated troponin. He has hx of CAD s/p CABG and stenting followed by [facility] cardiology, Insulin dependent TIIDM, HLD and hx of CVA. Pt reports he fell down a set of stairs last , had mild dizziness and lightheadedness in the days following, but then woke up this morning and could not get out of bed he was so dizzy. His brought him to the ED this morning. In the ED he was found to have an elevated troponin, so decision was made to admit him and consult cardiology. 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 He is scheduled for another test Jun 20, but he is unsure what this test is. CT head showed chronic lacunar infarct with possible acute infarct. MRI showed that the infarct was chronic and there were no acute findings. Troponin continued to trend down throughout hospital stay. Will get one more troponin and if normal, will d/c home. Date of Admission Jun 06, 2022 at 08:30 Date of Discharge 06/06/2022 Attending Physician Roland Martinez MD Admitting Physician Admitting Physician: Guilherme Woodson MD Attending Physician: Guilherme Woodson MD Consult Dr. Choi Allergies and Home Medications Allergies Coded Allergies: Penicillins (Verified Allergy, Unknown, 10/24/20) Patient Home Medication List Aspirin (Aspirin EC) 81 Mg Tablet., 81 MG PO DAILY, (Reported) Entered as Reported by: JARED TORRES on 06/06/221414 Last Action: Reviewed Carvedilol (Carvedilol) 3.125 Mg Tablet, 3.125 MG PO BID, (Reported) Entered as Reported by: JARED TORRES on 06/06/221414 Last Action: Reviewed Fenofibrate (Fenofibrate) 160 Mg Tablet, 160 MG PO DAILY, (Reported) Entered as Reported by: JARED TORRES on 06/06/221414 Last Action: Reviewed Insulin Detemir (Levemir Flextouch) 100 Unit/Ml (3 Ml) Insuln.pen, 34 UNITS SC HS, (Reported) Entered as Reported by: JARED TORRES on 06/06/221414 Last Action: Reviewed Levothyroxine Sodium (Levothyroxine Sodium) 50 Mcg Tablet, 50 MCG PO DAILY, (Reported) Entered as Reported by: JARED TORRES on 06/06/221414 Last Action: Reviewed Meclizine HCl (Meclizine HCl) 25 Mg Tablet, 25 MG PO Q12H PRN for VERTIGO Prescribed by: TRICE ANNA on 06/06/22644 Last Action: Reviewed Metformin HCl (Metformin HCl) 1,000 Mg Tablet, 1,000 MG PO BID, (Reported) Entered as Reported by: JARED TORRES on 06/06/221414 Last Action: Reviewed Ondansetron (Ondansetron Odt) 4 Mg Tab.rapdis, 4 MG SL Q6H PRN for NAUSEA/VOMITING Prescribed by: TRICE ANNA on 06/06/22644 Last Action: Reviewed Sertraline HCl (Sertraline HCl) 50 Mg Tablet, 50 MG PO DAILY, (Reported) Entered as Reported by: JARED TORRES on 06/06/221414 Last Action: Reviewed Simvastatin (Simvastatin) 80 Mg Tablet, 80 MG PO HS, (Reported) Entered as Reported by: JARED TORRES on 06/06/221414 Last Action: Reviewed Tamsulosin HCl (Flomax) 0.4 Mg Cap, 0.4 MG PO 1700 BEFORE DINNER, (Reported) Entered as Reported by: JARED TORRES on 06/06/221414 Last Action: Reviewed Ubidecarenone (Coq-10) 100 Mg Capsule, 100 MG PO DAILY, (Reported) Entered as Reported by: JARED TORRES on 06/06/221414 Last Action: Reviewed Past Ubzhrsj-Cpntax-Qdjgpd Hx Patient Social History Alcohol Beverage of Choice: Wine Recent Hopitalizations: No Have you traveled recently?: No Alcohol Use?: Yes Pt feels they are or have been: No Immunizations Up To Date Date of Influenza Vaccine: May 22, 2022 Surgeries Yes Cardiac Respiratory No Cardiovascular Yes High Cholesterol, Hypertension Neurological No Reproductive System Hx Reproductive Disorders: No Sexually Transmitted Disease: No HIV/AIDS: No Genitourinary No Gastrointestinal No Musculoskeletal No Endocrine History of Endocrine Disorders: Yes Endocrine Disorders: Diabetes, Insulin dep HEENT History of HEENT Disorders: No Cancer No Psychosocial History of Psychiatric Problem: No Integumentary History of Skin or Integumenta: No Blood Transfusions History of Blood Disorders: No Review of Systems Constitutional: No chills, No fever EENTM: No hearing loss, No ear pain, No blurred vision, No vision loss Respiratory: No cough, No short of breath Cardiovascular: No chest pain, No palpitations Gastrointestinal: No abdominal pain, No constipation, No diarrhea, No nausea, No vomiting Genitourinary: No dysuria, No frequency Musculoskeletal: no symptoms reported Skin: no symptoms reported Psychiatric/Neurological: Denies Headache; Numbness (left hand) Physical Exam Vital Signs Vital Signs - First Documented 06/06/22 06:07 Temp 36.3 Pulse 68 Resp 18 B/P (MAP) 180/87 (118) Pulse Ox 99 O2 Delivery Room Air Capillary Refill : Less Than 3 Seconds Height, Weight, BMI Height: '" Weight: lbs. oz. kg; 27.36 BMI Method: General Appearance: No Apparent Distress, WD/WN HEENT: PERRL/EOMI Neck: Full Range of Motion, Normal Inspection Respiratory: Chest Non Tender, Lungs Clear, No Accessory Muscle Use, No Respiratory Distress Cardiovascular: Regular Rate, Rhythm, No Murmur Gastrointestinal: Normal Bowel Sounds, Non Tender, Soft Back: Normal Inspection Extremity: Normal Capillary Refill, Non Tender, No Pedal Edema Neurologic/Psychiatric: Alert, Oriented x3, Normal Mood/Affect Skin: Normal Color, Warm/Dry Lymphatic: No Adenopathy Short Stay Diagnosis Discharge Diagnosis-Short Stay Admission Diagnosis: Elevated troponin Final Discharge Diagnosis: Elevated troponin Conclusion Labs Laboratory Tests 06/06/22 06:14: White Blood Count 5.8, Red Blood Count 3.97L, Hemoglobin 11.9L, Hematocrit 34L, Mean Corpuscular Volume 85, Mean Corpuscular Hemoglobin 30, Mean Corpuscular Hemoglobin Concent 35, Red Cell Distribution Width 12.4, Platelet Count 350, Mean Platelet Volume 11.8, Immature Granulocyte % (Auto) 0, Neutrophils (%) (Auto) 43, Lymphocytes (%) (Auto) 40, Monocytes (%) (Auto) 10, Eosinophils (%) (Auto) 6, Basophils (%) (Auto) 1, Neutrophils # (Auto) 2.5, Lymphocytes # (Auto) 2.3, Monocytes # (Auto) 0.6, Eosinophils # (Auto) 0.3, Basophils # (Auto) 0.1, Immature Granulocyte # (Auto) 0.0, Prothrombin Time 12.5, INR Comment 0.9, Activated Partial Thromboplast Time 25, Sodium Level 132L, Potassium Level 6.1H, Chloride Level 99, Carbon Dioxide Level 21, Anion Gap 12, Blood Urea Nitrogen 18, Creatinine 1.23, Estimat Glomerular Filtration Rate 59, BUN/Creatinine Ratio 15, Glucose Level 221H, Calcium Level 8.8, Corrected Calcium 8.9, Magnesium Level 1.8, Total Bilirubin 0.4, Aspartate Amino Transf (AST/SGOT) 50H, Alanine Aminotransferase (ALT/SGPT) 17, Alkaline Phosphatase 120, Troponin I 0.36*H, Total Protein 7.2, Albumin 3.9 06/06/22 09:05: Potassium Level 4.4 06/06/22 11:05: Troponin I < 0.028 06/06/22 11:45: Glucometer 210H Conclusion/Plan F/u with Dr. Martinez in 1 week. F/u with steam fitter supervisor in [facility], keep Jun 20 appt. Rise slowly from lying or sitting position Drink plenty of water to stay hydrated If you develop chest pain or discomfort or shortness of breath return to the ER. GUILHERME WOODSON MD 06/06/22 1642: History of Present Illness History of Present Illness Time Seen by Provider: 12:35 Allergies and Home Medications Allergies Coded Allergies: Penicillins (Verified Allergy, Unknown, 10/24/20) Patient Home Medication List Home Medication List Reviewed: Yes Aspirin (Aspirin EC) 81 Mg Tablet., 81 MG PO DAILY, (Reported) Entered as Reported by: JARED TORRES on 06/06/221414 Last Action: Reviewed Carvedilol (Carvedilol) 3.125 Mg Tablet, 3.125 MG PO BID, (Reported) Entered as Reported by: JARED TORRES on 06/06/221414 Last Action: Reviewed Fenofibrate (Fenofibrate) 160 Mg Tablet, 160 MG PO DAILY, (Reported) Entered as Reported by: JARED TORRES on 06/06/221414 Last Action: Reviewed Insulin Detemir (Levemir Flextouch) 100 Unit/Ml (3 Ml) Insuln.pen, 34 UNITS SC HS, (Reported) Entered as Reported by: JARED TORRES on 06/06/221414 Last Action: Reviewed Levothyroxine Sodium (Levothyroxine Sodium) 50 Mcg Tablet, 50 MCG PO DAILY, (Reported) Entered as Reported by: JARED TORRES on 06/06/221414 Last Action: Reviewed Meclizine HCl (Meclizine HCl) 25 Mg Tablet, 25 MG PO Q12H PRN for VERTIGO Prescribed by: TRICE ANNA on 06/06/22644 Last Action: Reviewed Metformin HCl (Metformin HCl) 1,000 Mg Tablet, 1,000 MG PO BID, (Reported) Entered as Reported by: JARED TORRES on 06/06/221414 Last Action: Reviewed Ondansetron (Ondansetron Odt) 4 Mg Tab.rapdis, 4 MG SL Q6H PRN for NAUSEA/VOMITING Prescribed by: TRICE ANNA on 06/06/22644 Last Action: Reviewed Sertraline HCl (Sertraline HCl) 50 Mg Tablet, 50 MG PO DAILY, (Reported) Entered as Reported by: JARED TORRES on 06/06/221414 Last Action: Reviewed Simvastatin (Simvastatin) 80 Mg Tablet, 80 MG PO HS, (Reported) Entered as Reported by: JARDE TORRES on 06/06/221414 Last Action: Reviewed Tamsulosin HCl (Flomax) 0.4 Mg Cap, 0.4 MG PO 1700 BEFORE DINNER, (Reported) Entered as Reported by: JARED TORRES on 06/06/221414 Last Action: Reviewed Ubidecarenone (Coq-10) 100 Mg Capsule, 100 MG PO DAILY, (Reported) Entered as Reported by: JARED TORRES on 06/06/221414 Last Action: Reviewed Review of Systems Constitutional: dizziness; No malaise, No weakness EENTM: no symptoms reported Respiratory: no symptoms reported; No cough, No dyspnea on exertion, No short of breath Cardiovascular: no symptoms reported; No chest pain, No edema, No palpitations Gastrointestinal: no symptoms reported; No abdominal pain, No constipation, No diarrhea, No nausea, No vomiting Genitourinary: no symptoms reported; No dysuria, No frequency, No hematuria Musculoskeletal: no symptoms reported Skin: no symptoms reported; No lesions, No rash Psychiatric/Neurological: No Symptoms Reported Physical Exam General Appearance: No Apparent Distress, WD/WN HEENT: PERRL/EOMI Neck: Full Range of Motion, Normal Inspection, Non Tender Respiratory: Chest Non Tender, Lungs Clear, Normal Breath Sounds, No Accessory Muscle Use, No Respiratory Distress Cardiovascular: Regular Rate, Rhythm, No Edema, Normal Peripheral Pulses Gastrointestinal: Normal Bowel Sounds, Non Tender, Soft Back: Normal Inspection, No CVA Tenderness, No Vertebral Tenderness Extremity: Normal Capillary Refill, Non Tender, No Calf Tenderness, No Pedal Edema Neurologic/Psychiatric: Alert, Oriented x3, rehab physician II-XII Norm as Tested Skin: Normal Color, Warm/Dry Lymphatic: No Adenopathy Short Stay Diagnosis Discharge Diagnosis-Short Stay Final Discharge Diagnosis: Dizziness CAD HTN HLD DM Conclusion Conclusion/Plan See below Supervisory-Addendum Brief Verification & Attestation Participated in pt care: history, physical Personally performed: exam, history Care discussed with: Medical Student Procedures: n/a Verification and Attestation of Medical Student E/M Service A medical student performed and documented this service in my presence. I reviewed and verified all information documented by the medical student and made modifications to such information, when appropriate. I personally performed the physical exam and medical decision making. Guilherme Woodson, Jun 06, 2022,16:43 Dizziness - No CP no acute ASC, Cardiology consulted appreciate recommendations Elevated Troponin CAD HTN HLD h/o CVA Fall Dispo: home today with close f.u with primary cardiology and PCP ANURADHA RAMON MED STUDENT Jun 06, 2022 13:03 GUILHERME WOODSON MD Jun 06, 2022 16:42
[2022-06-06] MEDS ORDERED: CATHETER FLUSH 10 ML SYR IV SCH (14:00)
[2022-06-06] MEDS ORDERED: LEVO50TA6 PO (14:15)
[2022-06-06] MEDS ORDERED: INSU100I29 SC (14:15)
[2022-06-06] MEDS ORDERED: FENO160T12 PO (14:15)
[2022-06-06] MEDS ORDERED: SIMV80TA21 PO (14:15)
[2022-06-06] MEDS ORDERED: TMSL.4C PO (14:15)
[2022-06-06] MEDS ORDERED: METF-399 PO (14:15)
[2022-06-06] MEDS ORDERED: ASPI-1238 PO (14:15)
[2022-06-06] MEDS ORDERED: UBID100C17 PO (14:15)
[2022-06-06] MEDS ORDERED: SERT-413 PO (14:15)
[2022-06-06] MEDS ORDERED: CARV3.122 PO (14:15)
--- NOTE | 2022-06-06 14:55 | Consultation-Cardiology ---
HPI-Cardiology Cardiology Consultation: Date of Consultation 06/06/22 Time Seen by a Provider: 12:30 Date of Admission Attending Physician Roland Martinez MD Admitting Physician Admitting Physician: Jennifer Jeffries MD Attending Physician: Jennifer Jeffries MD Consulting Physician JOÃO RAMÍREZ MD, MA, FACP, FACC, [facility], CCDS Physician requesting consult: Dr Jeffries HPI: Chief Complaint: Dizziness Mr. Mahmood is an 82 yr old male who has been admitted to [facility] from the [facility] ED. He reports last week he was going into the basement when he mis-stepped and fell hitting his head. He denies any loss of consciousness. He denies any c/o CP, SOB, palpitations, syncope or near syncope. He reports he had significant dizziness following his fall that would resolve when he would sit down and hold on to something. He reports the dizziness did improve over a few days. However this morning he developed significant dizziness that would not resolve. He reports his brought him to the ED this morning. He states the dizziness is better, but not completely resolved. No c/o syncope or near syncope. He sees Dr. Summers at [facility] in [place] for cardiology care. He reports he saw him approx 8 months ago at which time he had a stress test and echo which he reports were normal. Review of Systems-Cardiology Review of Systems Constitutional: No chills, No fever, No malaise Eyes: No vision change Ears/Nose/Throat: No epistaxis, No recent hearing loss Respiratory: As described under HPI Cardiovascular: As described under HPI Gastrointestinal: No constipation, No diarrhea, No nausea, No vomiting Genitourinary: No dysuria, No hematuria Musculoskeletal: no symptoms reported Skin: No rash on exposed areas, No ulcerations on exposed areas Psychiatric/Neurological: As described under HPI; No anxiety, No depression, No seizure, No focal weakness, No syncope Hematologic: No bleeding abnormalities All Other Systems Reviewed Negative Unless Noted: Yes DLI-Slccee-Urlghp Hx Patient Social History Have you traveled recently?: No Alcohol Use?: Yes Pt feels they are or have been: No Immunizations Up To Date Date of Influenza Vaccine: May 22, 2022 Past Medical History PMH As described under Assessment. Family Medical History Family Medical History: He reports his father had CAD dx in his 40's. He reports a brother with CAD. Allergies and Home Medications Allergies Coded Allergies: Penicillins (Verified Allergy, Unknown, 10/24/20) Patient Home Medication List Home Medication List Reviewed: Yes Aspirin (Aspirin EC) 81 Mg Tablet.dr, 81 MG PO DAILY, (Reported) Entered as Reported by: JARED TORRES on 06/06/221414 Last Action: Reviewed Carvedilol (Carvedilol) 3.125 Mg Tablet, 3.125 MG PO BID, (Reported) Entered as Reported by: JARED TORRES on 06/06/221414 Last Action: Reviewed Fenofibrate (Fenofibrate) 160 Mg Tablet, 160 MG PO DAILY, (Reported) Entered as Reported by: JARED TORRES on 06/06/221414 Last Action: Reviewed Insulin Detemir (Levemir Flextouch) 100 Unit/Ml (3 Ml) Insuln.pen, 34 UNITS SC HS, (Reported) Entered as Reported by: JARED TORRES on 06/06/221414 Last Action: Reviewed Levothyroxine Sodium (Levothyroxine Sodium) 50 Mcg Tablet, 50 MCG PO DAILY, (Reported) Entered as Reported by: JARED TORRES on 06/06/221414 Last Action: Reviewed Meclizine HCl (Meclizine HCl) 25 Mg Tablet, 25 MG PO Q12H PRN for VERTIGO Prescribed by: TRICE ANNA on 06/06/22644 Last Action: Reviewed Metformin HCl (Metformin HCl) 1,000 Mg Tablet, 1,000 MG PO BID, (Reported) Entered as Reported by: JARED TORRES on 06/06/221414 Last Action: Reviewed Ondansetron (Ondansetron Odt) 4 Mg Tab.rapdis, 4 MG SL Q6H PRN for NAUSEA/VOMITING Prescribed by: TRICE ANNA on 06/06/22644 Last Action: Reviewed Sertraline HCl (Sertraline HCl) 50 Mg Tablet, 50 MG PO DAILY, (Reported) Entered as Reported by: JARED TORRES on 06/06/221414 Last Action: Reviewed Simvastatin (Simvastatin) 80 Mg Tablet, 80 MG PO HS, (Reported) Entered as Reported by: JARED TORRES on 06/06/221414 Last Action: Reviewed Tamsulosin HCl (Flomax) 0.4 Mg Cap, 0.4 MG PO 1700 BEFORE DINNER, (Reported) Entered as Reported by: JARED TORRES on 06/06/221414 Last Action: Reviewed Ubidecarenone (Coq-10) 100 Mg Capsule, 100 MG PO DAILY, (Reported) Entered as Reported by: JARED TORRES on 06/06/221414 Last Action: Reviewed Physical Exam-Cardiology Physical Exam Vital Signs/I&O 06/06/22 06/06/22 06/06/22 06/06/22 06:07 07:47 09:04 09:46 Temp 36.3 36.5 36.5 Pulse 68 63 58 58 Resp 18 16 B/P (MAP) 180/87 (118) 167/82 Pulse Ox 99 99 99 O2 Delivery Room Air Room Air 06/06/22 06/06/22 06/06/22 10:23 11:54 13:07 Temp 36.6 Pulse 62 66 Resp 12 B/P (MAP) 168/73 (104) Pulse Ox 98 O2 Delivery Room Air Room Air Capillary Refill : Less Than 3 Seconds Constitutional: AAO x 3, well-developed, well-nourished HEENT: PERRL, hearing is well preserved, oral hygience is good Neck: No carotid bruit; carotid pulses are 2 + bilaterally Respiratory: No accessory muscle use, No respiratory distress; chest expansion is symmetric, chest is bilaterally symmetric, lungs clear to auscultation Cardiovascular: regular rate-rhythm; No JVD; S1 and S2 Gastrointestinal: No tender; soft, round, audible bowel sounds Extremities: no lower extremity edema bilateral Neurologic/Psychiatric: grossly intact (moves all extremities) Skin: No rash on exposed areas, No ulcerations on exposed areas Data Review Labs Laboratory Tests 06/06/22 06:14: White Blood Count 5.8, Red Blood Count 3.97L, Hemoglobin 11.9L, Hematocrit 34L, Mean Corpuscular Volume 85, Mean Corpuscular Hemoglobin 30, Mean Corpuscular Hemoglobin Concent 35, Red Cell Distribution Width 12.4, Platelet Count 350, Mean Platelet Volume 11.8, Immature Granulocyte % (Auto) 0, Neutrophils (%) (Auto) 43, Lymphocytes (%) (Auto) 40, Monocytes (%) (Auto) 10, Eosinophils (%) (Auto) 6, Basophils (%) (Auto) 1, Neutrophils # (Auto) 2.5, Lymphocytes # (Auto) 2.3, Monocytes # (Auto) 0.6, Eosinophils # (Auto) 0.3, Basophils # (Auto) 0.1, Immature Granulocyte # (Auto) 0.0, Prothrombin Time 12.5, INR Comment 0.9, Activated Partial Thromboplast Time 25, Sodium Level 132L, Potassium Level 6.1H, Chloride Level 99, Carbon Dioxide Level 21, Anion Gap 12, Blood Urea Nitrogen 18, Creatinine 1.23, Estimat Glomerular Filtration Rate 59, BUN/Creatinine Ratio 15, Glucose Level 221H, Calcium Level 8.8, Corrected Calcium 8.9, Magnesium Level 1.8, Total Bilirubin 0.4, Aspartate Amino Transf (AST/SGOT) 50H, Alanine Aminotransferase (ALT/SGPT) 17, Alkaline Phosphatase 120, Troponin I 0.36*H, Total Protein 7.2, Albumin 3.9 06/06/22 09:05: Potassium Level 4.4 06/06/22 11:05: Troponin I < 0.028 06/06/22 11:45: Glucometer 210H A/P-Cardiology Assessment/Admission Diagnosis S/P mechanical fall Dizziness of undetermined etiology post fall No ACS seen - No evidence of ac ischemia on ECG - No troponin elevation: Minimal troponin elevation reported at [facility] ER, but troponin just a few hours later at this hosp is normal - no c/o CP H/O CAD - CABG x 5 vessel approx 7 yrs ago at [facility] - reports stress test approx 8 months ago at [facility] which was normal H/O CVA approx 15 yrs ago - ? new CVA according to CT done today - awaiting MRI - management per medical services HLD DM 2 Discussion and Recomendations * No evidence of ACS * He wishes to go home * Advised continuing f/u with development mgr at [facility] and to continue the cardiac regimen recommended by his development mgr * Advised to return to ER in case of recurrent or new symptoms * I discussed his case with Dr Jeffries earlier today JOÃO RAMÍREZ MD [facility] CCDS Jun 06, 2022 14:54
[2022-06-06 16:00] VITALS: BP 136/64
--- NOTE | 2022-06-06 16:37 | Discharge Summary ---
Discharge [facility] Reconcile Patient Problems Problems Reviewed?: Yes Discharge Medications New, Converted or Re-Newed RX: Other (No new meds) Continued Medications: Aspirin (Aspirin EC) 81 Mg Tablet.dr 81 MG PO DAILY, TAB Carvedilol (Carvedilol) 3.125 Mg Tablet 3.125 MG PO BID, TAB Fenofibrate (Fenofibrate) 160 Mg Tablet 160 MG PO DAILY, TAB Insulin Detemir (Levemir Flextouch) 100 Unit/Ml (3 Ml) Insuln.pen 34 UNITS SC HS, UNITS Levothyroxine Sodium (Levothyroxine Sodium) 50 Mcg Tablet 50 MCG PO DAILY, TAB Meclizine HCl (Meclizine HCl) 25 Mg Tablet 25 MG PO Q12H PRN for VERTIGO for 14 Days, #28 TAB Metformin HCl (Metformin HCl) 1,000 Mg Tablet 1000 MG PO BID, TAB Ondansetron (Ondansetron Odt) 4 Mg Tab.rapdis 4 MG SL Q6H PRN for NAUSEA/VOMITING for 5 Days, #20 TAB Sertraline HCl (Sertraline HCl) 50 Mg Tablet 50 MG PO DAILY, TAB Simvastatin (Simvastatin) 80 Mg Tablet 80 MG PO HS, TAB Tamsulosin HCl (Flomax) 0.4 Mg Cap 0.4 MG PO 1700 BEFORE DINNER, CAP Ubidecarenone (Coq-10) 100 Mg Capsule 100 MG PO DAILY, CAP Patient Instructions Goal/Follow Up Appt: 1-2 weeks with PCP Self Activity & Diet Discharge Diet: Cardiac Diet Activity as Tolerated: Yes GUILHERME WOODSON MD Jun 06, 2022 16:37
[2022-06-07] MEDS ORDERED: ASPIRIN E.C. 81 MG (ECOTRIN) TAB PO SCH (09:00)
== END 2022-06-06 17:00 | disposition home or self-care (01) | DRG 149 ==
LOC: EDUNIT# 06:05 → ER FS 06:07 → CSD 08:30
PROVIDERS: ADMIT Family Medicine; ATTEND Family Medicine
DX: R42 Dizziness and giddiness (principal); I25.10 Atherosclerotic heart disease of native coronary artery without angina pectoris; I10 Essential (primary) hypertension; E78.00 Pure hypercholesterolemia, unspecified; E11.9 Type 2 diabetes mellitus without complications; R77.8 Other specified abnormalities of plasma proteins; Z66 Do not resuscitate; Z95.5 Presence of coronary angioplasty implant and graft; Z95.1 Presence of aortocoronary bypass graft; Z79.4 Long term (current) use of insulin; Z79.84 Long term (current) use of oral hypoglycemic drugs; Z79.82 Long term (current) use of aspirin; Z88.0 Allergy status to penicillin; Z86.73 Personal history of transient ischemic attack (TIA), and cerebral infarction without residual deficits; Z91.81 History of falling
CPT/HCPCS: 36415; 70450; 70553; 71045; 80053; 82947; 83735; 84132; 84484; 85025; 85610; 85730; 93005

== ENCOUNTER → 2022-06-15 | Outpatient (CLI) | payer MEDICARE, OTHER ==
[~2022-06-15] MED LIST: ASPI-1238 PO; CARV3.122 PO; FENO160T12 PO; INSU100I29 SC; LEVO50TA6 PO; MECL-149 PO; METF-399 PO; ONDA4TAB11 SL; SERT-413 PO; SIMV80TA21 PO; TMSL.4C PO; UBID100C17 PO
--- NOTE | 2022-06-15 17:49 | Diagnostic Imaging Report ---
INDICATION: Neck pain, radiculopathy AP and lateral and odontoid views of cervical spine obtained. Cervical vertebrae appear normal in height and alignment. There is no fracture or subluxation. There is mild diffuse osteophyte formation. There is disc space narrowing most prominent at C5-C6 and C6-C7. There is diffuse facet degenerative change. The odontoid appears intact. IMPRESSION: Diffuse degenerative changes as described above with most severe changes at C5-C6 and C6-C7. No acute abnormality. Dictated by: Dictated on workstation # [id number]
== END ==
LOC: RAD FS 14:16
PROVIDERS: ATTEND Family Medicine
DX: M47.22 Other spondylosis with radiculopathy, cervical region (principal); M50.123 Cervical disc disorder at C6-C7 level with radiculopathy
CPT/HCPCS: 72040

== ENCOUNTER → 2022-06-28 | Outpatient (CLI) | payer MEDICARE, OTHER ==
--- NOTE | 2022-06-28 16:06 | Diagnostic Imaging Report ---
PROCEDURE: MR imaging cervical spine without contrast. TECHNIQUE: Multiplanar, multisequence MR imaging of the cervical spine was performed without contrast. INDICATION: Fall. Neck pain. Left arm numbness. COMPARISON: none. FINDINGS: No acute fracture or dislocation is seen in the cervical spine. There is straightening of the cervical spine. The vertebral body heights and disc spaces are well maintained. The bone marrow signal is unremarkable. No focal osseous lesions. The craniocervical junction is maintained. The cervical spinal cord demonstrates normal intrinsic signal. No epidural collections are seen. The included brainstem and posterior fossa have normal appearance. Multilevel degenerative changes are seen in the cervical spine with posterior disc bulges and uncovertebral arthropathy. C2-C3: No significant spinal canal or foraminal stenosis. C3-C4: No significant spinal canal or foraminal stenosis. C4-C5: No significant spinal canal or foraminal stenosis. C5-C6: Posterior disc bulge, buckling of the ligamentum flavum and uncovertebral arthropathy results in severe spinal canal stenosis and moderate to severe right and mild left foraminal stenosis.. C6-C7: Posterior disc bulge and uncovertebral arthropathy results in mild spinal canal narrowing and mild right and moderate left foraminal stenosis. C7-T1: No significant spinal canal or foraminal stenosis. The soft tissues of neck are unremarkable. IMPRESSION: 1. No acute fracture or dislocation of the cervical spine. 2. Multilevel degenerative changes in the cervical spine, greatest at C5-C6 and C6-C7. Dictated by: Dictated on workstation # [id number]
== END ==
LOC: RAD 13:27
PROVIDERS: ATTEND Family Medicine
DX: M47.812 Spondylosis without myelopathy or radiculopathy, cervical region (principal); M50.30 Other cervical disc degeneration, unspecified cervical region; W19.XXXA Unspecified fall, initial encounter
CPT/HCPCS: 72141

== ENCOUNTER 2022-11-09 07:34 | Emergency (ER) | payer MEDICARE, OTHER ==
[~2022-11-09] VITALS: Ht 175 cm; Wt 82.0 kg
--- NOTE | 2022-11-09 07:48 | ED Chest Pain ---
General Chief Complaint: Chest Pain Stated Complaint: CHEST PAIN Source: patient Exam Limitations: no limitations History of Present Illness Date Seen by Provider: Nov 09, 2022 Time Seen by Provider: 07:34 Initial Comments 82-year-old male with past medical history of CAD s/p CABG, HTN, HLD, DM coming in due to 3 days of constant, central, moderate chest tightness. Feels similar to prior heart attacks he has had. He states the reason he came in today was because he is feeling more short of breath with it. He states that shortness of breath is slightly worse when he lies back, but not much different. Denies any lower extremity swelling or pain, no prior history of DVT or PE, no surgery within the past month, although did have spinal surgery just over a month ago, does not take any hormones, no hemoptysis. Also denying any fever, vomiting, diarrhea, focal weakness or numbness, headache, vision changes, or any other concerns. He did take his medicines this morning including his baby aspirin. Allergies and Home Medications Allergies Coded Allergies: Penicillins (Verified Allergy, Unknown, 10/24/20) Patient Home Medication List Home Medication List Reviewed: Yes Aspirin (Aspirin EC) 81 Mg Tablet.dr, 81 MG PO DAILY, (Reported) Entered as Reported by: JARED TORRES on 06/06/221414 Carvedilol (Carvedilol) 3.125 Mg Tablet, 3.125 MG PO BID, (Reported) Entered as Reported by: JARED TORRES on 06/06/221414 Fenofibrate (Fenofibrate) 160 Mg Tablet, 160 MG PO DAILY, (Reported) Entered as Reported by: JARED TORRES on 06/06/221414 Insulin Detemir (Levemir Flextouch) 100 Unit/Ml (3 Ml) Insuln.pen, 34 UNITS SC HS, (Reported) Entered as Reported by: JARED TORRES on 06/06/221414 Levothyroxine Sodium (Levothyroxine Sodium) 50 Mcg Tablet, 50 MCG PO DAILY, (Reported) Entered as Reported by: JARED TORRES on 06/06/221414 Meclizine HCl (Meclizine HCl) 25 Mg Tablet, 25 MG PO Q12H PRN for VERTIGO Prescribed by: TRICE ANNA on 10/25/22 0645 Metformin HCl (Metformin HCl) 1,000 Mg Tablet, 1,000 MG PO BID, (Reported) Entered as Reported by: JARED TORRES on 06/06/221414 Ondansetron (Ondansetron Odt) 4 Mg Tab.rapdis, 4 MG SL Q6H PRN for NAUSEA/VOMITING Prescribed by: TRICE ANNA on 06/06/22644 Sertraline HCl (Sertraline HCl) 50 Mg Tablet, 50 MG PO DAILY, (Reported) Entered as Reported by: JARED TORRES on 06/06/221414 Simvastatin (Simvastatin) 80 Mg Tablet, 80 MG PO HS, (Reported) Entered as Reported by: JARED TORRES on 06/06/221414 Tamsulosin HCl (Flomax) 0.4 Mg Cap, 0.4 MG PO 1700 BEFORE DINNER, (Reported) Entered as Reported by: JARED TORRES on 06/06/221414 Ubidecarenone (Coq-10) 100 Mg Capsule, 100 MG PO DAILY, (Reported) Entered as Reported by: JARED TORRES on 06/06/221414 Review of Systems Review of Systems Constitutional: No fever EENTM: No Symptoms Reported Respiratory: See HPI Cardiovascular: See HPI Gastrointestinal: No Symptoms Reported Genitourinary: No Symptoms Reported Musculoskeletal: no symptoms reported Skin: no symptoms reported Psychiatric/Neurological: No Symptoms Reported Endocrine: No Symptoms Reported Hematologic/Lymphatic: No Symptoms Reported Past Gibieqg-Wcjhga-Yspmuy Hx Patient Social History Tobacco Use?: No Past Medical History Surgery/Hospitalization HX: CABG x5, spinal surgery Surgeries: Yes Cardiac Respiratory: No Cardiac: Yes High Cholesterol, Hypertension Neurological: No Reproductive Disorders: No Sexually Transmitted Disease: No HIV/AIDS: No Genitourinary: No Gastrointestinal: No Musculoskeletal: No Endocrine: Yes Diabetes, Insulin dep HEENT: No Cancer: No Psychosocial: No Integumentary: No Blood Disorders: No Physical Exam Vital Signs Vital Signs - First Documented 11/09/22 07:35 Temp 36.3 Pulse 85 Resp 16 B/P (MAP) 159/75 (103) Pulse Ox 97 O2 Delivery Room Air Capillary Refill : Height, Weight, BMI Height: '" Weight: lbs. oz. kg; 27.36 BMI Method: General Appearance: No Apparent Distress, WD/WN HEENT: PERRL/EOMI, Normal ENT Inspection, Pharynx Normal Neck: Full Range of Motion, Normal Inspection, Non Tender, Supple Respiratory: Chest Non Tender, Lungs Clear (Crackles initially in the bases which is were gone with subsequent breaths), Normal Breath Sounds, No Accessory Muscle Use, No Respiratory Distress Cardiovascular: Regular Rate, Rhythm, No Edema, Normal Peripheral Pulses Gastrointestinal: Normal Bowel Sounds, Non Tender, Soft; No Distended, No Guarding Extremity: Normal Capillary Refill, Normal Inspection, Normal Range of Motion, Non Tender, No Calf Tenderness, No Pedal Edema Neurologic/Psychiatric: Alert, Oriented x3, No Motor/Sensory Deficits, Normal Mood/Affect, primary care md II-XII Norm as Tested, Other (Normal gait) Skin: Normal Color, Warm/Dry Progress/Results/Core Measures Results/Orders Lab Results Laboratory Tests Test 11/09/22 07:45 Range/Units White Blood Count 8.3 4.3-11.0 10^3/uL Red Blood Count 3.97 L 4.30-5.52 10^6/uL Hemoglobin 11.5 L 13.3-17.7 g/dL Hematocrit 35 L 40-54 % Mean Corpuscular Volume 87 80-99 fL Mean Corpuscular Hemoglobin 29 25-34 pg Mean Corpuscular Hemoglobin Concent 33 32-36 g/dL Red Cell Distribution Width 13.1 10.0-14.5 % Platelet Count 266 130-400 10^3/uL Mean Platelet Volume 9.8 9.0-12.2 fL Immature Granulocyte % (Auto) 1 % Neutrophils (%) (Auto) 66 42-75 % Lymphocytes (%) (Auto) 19 12-44 % Monocytes (%) (Auto) 10 0-12 % Eosinophils (%) (Auto) 4 0-10 % Basophils (%) (Auto) 1 0-10 % Neutrophils # (Auto) 5.5 1.8-7.8 10^3/uL Lymphocytes # (Auto) 1.6 1.0-4.0 10^3/uL Monocytes # (Auto) 0.8 0.0-1.0 10^3/uL Eosinophils # (Auto) 0.3 0.0-0.3 10^3/uL Basophils # (Auto) 0.1 0.0-0.1 10^3/uL Immature Granulocyte # (Auto) 0.0 0.0-0.1 10^3/uL Prothrombin Time 12.6 12.2-14.7 SEC INR Comment 0.9 0.8-1.4 Activated Partial Thromboplast Time 27 24-35 SEC D-Dimer 0.46 0.00-0.49 UG/ML Sodium Level 136 135-145 MMOL/L Potassium Level 4.6 3.6-5.0 MMOL/L Chloride Level 101 98-107 MMOL/L Carbon Dioxide Level 23 21-32 MMOL/L Anion Gap 12 5-14 MMOL/L Blood Urea Nitrogen 18 7-18 MG/DL Creatinine 1.42 H 0.60-1.30 MG/DL Estimat Glomerular Filtration Rate 50 BUN/Creatinine Ratio 13 Glucose Level 286 H 70-105 MG/DL Calcium Level 9.1 8.5-10.1 MG/DL Corrected Calcium 8.9 8.5-10.1 MG/DL Magnesium Level 1.7 1.6-2.4 MG/DL Total Bilirubin 0.2 0.1-1.0 MG/DL Aspartate Amino Transf (AST/SGOT) 29 5-34 U/L Alanine Aminotransferase (ALT/SGPT) 17 0-55 U/L Alkaline Phosphatase 108 40-136 U/L Troponin I 3.11 *H <0.30 NG/ML Pro-B-Type Natriuretic Peptide 1038.0 H <450.0 PG/ML Total Protein 6.9 6.4-8.2 GM/DL Albumin 4.2 3.2-4.5 GM/DL Lipase 76 8-78 U/L My Orders Orders - TRICE ANNA MD Cbc With Automated Diff (11/09/22 07:41) Magnesium (11/09/22 07:41) Chest 1 View Ap/Pa Only (11/09/22 07:41) Ekg Tracing (11/09/22 07:41) Comprehensive Metabolic Panel (11/09/22 07:41) Protime With Inr (11/09/22 07:41) Partial Thromboplastin Time (11/09/22 07:41) O2 (11/09/22 07:41) Monitor-Rhythm Ecg Trace Only (11/09/22 07:41) Aspirin Chewable Tablet (Baby Aspirin Ch (11/09/22 07:45) Ed Iv/Invasive Line Start (11/09/22 07:41) Lipase (11/09/22 07:41) Fibrin Degradation Products (11/09/22 07:41) Troponin I Fs (11/09/22 07:41) Probnp Fs (11/09/22 07:41) Nitroglycerin Ointment (Nitrobid Ointme (11/09/22 07:45) Enoxaparin Injection (Lovenox Injection) (11/09/22 08:30) Clopidogrel Tablet (Plavix Tablet) (11/09/22 08:45) Metoprolol Succinate (Xl) Tab (Toprol Xl (11/09/22 08:45) Medications Given in ED Current Medications Medications Dose Ordered Sig/Kareem Route Start Time Stop Time Status Last Admin Dose Admin Aspirin 243 mg ONCE ONCE PO 11/09/22 07:45 11/09/22 07:46 DC 11/09/22 07:54 243 MG Clopidogrel Bisulfate 300 mg ONCE ONCE PO 11/09/22 08:45 11/09/22 08:46 DC 11/09/22 08:37 300 MG Enoxaparin Sodium 80 mg ONCE ONCE SC 11/09/22 08:30 11/09/22 08:31 DC 11/09/22 08:23 80 MG Metoprolol Succinate 25 mg ONCE ONCE PO 11/09/22 08:45 11/09/22 08:46 DC 11/09/22 08:37 25 MG Nitroglycerin 1 inch ONCE ONCE TOP 11/09/22 07:45 11/09/22 07:46 DC 11/09/22 07:54 1 INCH Vital Signs/I&O 11/09/22 07:35 Temp 36.3 Pulse 85 Resp 16 B/P (MAP) 159/75 (103) Pulse Ox 97 O2 Delivery Room Air Progress Progress Note : Progress Note 82-year-old male with above history coming in due to chest pain. ABCs were intact and vitals were stable on presentation. Physical exam with no significant abnormalities. EKG ordered and interpreted by me showing new acute changes in the inferior leads with ST depression and T wave inversions that is concerning. The patient was given full dose aspirin as well as Nitropaste since his blood pressure was 140s systolic. An IV was placed and basic labs were obtained including cardiac biomarkers. This was concerning for troponin just over 3. I am unclear the direction the troponin is going, if the patient had the myocardial insult 3 days ago, it is likely trending down. It is possible he had a new or worsening event this morning given the new shortness of breath. He was given Lovenox 1 mg/kg here. I then paged Dr. Choi in consultation. Upon discussing the case with him, he recommended the patient be transferred to [facility] for continuity of care as well as more specialist available if needed. Contacted transfer at [phone] and they stated they do not believe they have beds, but they will call back with a response soon. transfer line called back at 09:25 and he is accepted to their ICU by Dr. Stewart. They do not have a bed at this time, and they will call back with one when available. called back at 09:45 with a bed assignment. Initial ECG Impression Date: Nov 09, 2022 Initial ECG Impression Time: 07:37 Initial ECG Rate: 85 Initial ECG Rhythm: Normal Sinus Comment Narrow QRS, normal axis, no significant ST elevation, negative for STEMI, T wave inversions with some ST depression in the inferior leads which is new from prior EKGs Diagnostic Imaging Diagonstic Imaging: Xray (chest) Comments NAME: MITESH ALMAZAN V MED REC#: [id number] PT STATUS: REG ER : 1940 PHYSICIAN: TRICE ANNA MD ADMIT DATE: 11/09/22/ER FS Draft Date of Exam:11/09/22 CHEST 1 VIEW AP/PA ONLY INDICATION: chest pain and SOB COMPARISON: 06/06/2022 FINDINGS: Single frontal view of the chest demonstrates normal heart size and pulmonary vascularity. The lungs are well aerated and clear. No large pleural effusion or pneumothorax is seen. The visualized osseous structures show no acute abnormalities. Sternotomy wires and calcified aortic atherosclerosis are noted. IMPRESSION: 1. No acute cardiopulmonary process. Dictated on workstation # [id number] Dict: 11/09/22749 Trans: 11/09/22752 CV [id number] Interpreted by: MISBAH STARK MD Electronically signed by: Departure Impression Primary Impression: NSTEMI (non-ST elevated myocardial infarction) Disposition: XF SHT-TRM HOSP Condition: Stable Admissions Decision to Admit Reason: Admit from ER (General) Decision to Admit/Date: Nov 09, 2022 Time/Decision to Admit Time: 08:20 Transfer Transfer Reason: Exceeds level of care (may need cardiac surgery for CABG vs valve replacement depending on findings, also continuity of care) Time Spoke to Accepting Phy: 08:41 Transfer Facility: [facility] Method of Transfer: EMS Departure-Patient Inst. Referrals: UBALDO ALEJANDRO MD (PCP) Primary Care Physician TRICE ANNA MD Nov 09, 2022 07:48
[2022-11-09 07:52] LABS: BASOPHILS # (AUTO) 0.1 10^3/uL (0.0-0.1); BASOPHILS % (AUTO) 1 % (0-10); EOSINOPHILS # (AUTO) 0.3 10^3/uL (0.0-0.3); EOSINOPHILS % (AUTO) 4 % (0-10); HEMATOCRIT 35 % (40-54); HEMOGLOBIN 11.5 g/dL (13.3-17.7); LYMPHOCYTES # (AUTO) 1.6 10^3/uL (1.0-4.0); LYMPHOCYTES % (AUTO) 19 % (12-44); MEAN CORPUSCULAR HEMOGLOBIN 29 pg (25-34); MEAN CORPUSCULAR HGB CONC 33 g/dL (32-36); MEAN CORPUSCULAR VOLUME 87 fL (80-99); MEAN PLATELET VOLUME 9.8 fL (9.0-12.2); MONOCYTES # (AUTO) 0.8 10^3/uL (0.0-1.0); MONOCYTES % (AUTO) 10 % (0-12); NEUTROPHILS # (AUTO) 5.5 10^3/uL (1.8-7.8); NEUTROPHILS % (AUTO) 66 % (42-75); PLATELET COUNT 266 10^3/uL (130-400); WHITE BLOOD COUNT 8.3 10^3/uL (4.3-11.0)
--- NOTE | 2022-11-09 07:53 | Diagnostic Imaging Report ---
INDICATION: chest pain and SOB COMPARISON: 06/06/2022 FINDINGS: Single frontal view of the chest demonstrates normal heart size and pulmonary vascularity. The lungs are well aerated and clear. No large pleural effusion or pneumothorax is seen. The visualized osseous structures show no acute abnormalities. Sternotomy wires and calcified aortic atherosclerosis are noted. IMPRESSION: 1. No acute cardiopulmonary process. Dictated by: Dictated on workstation # [id number]
[2022-11-09] MEDS: ASPIRIN 81 MG CHEW (CHILDREN'S ASA) PO ONE (07:54)
[2022-11-09] MEDS: NITROGLYCERIN 2% OINT 1 GM UNIT DOSE PACKET TOP ONE (07:54)
[2022-11-09 08:12] LABS: CALCIUM 9.1 MG/DL (8.5-10.1); CREATININE SERUM 1.42 MG/DL (0.60-1.30); MAGNESIUM 1.7 MG/DL (1.6-2.4); POTASSIUM 4.6 MMOL/L (3.6-5.0)
[2022-11-09 08:13] LABS: ALBUMIN 4.2 GM/DL (3.2-4.5); BILIRUBIN,TOTAL 0.2 MG/DL (0.1-1.0); TOTAL PROTEIN 6.9 GM/DL (6.4-8.2)
[2022-11-09] MEDS: ENOXAPARIN 80 MG/0.8 ML (LOVENOX) SYR SC ONE (08:23)
[2022-11-09 08:24] LABS: INR 0.9 (0.8-1.4); PROTHROMBIN TIME PATIENT 12.6 SEC (12.2-14.7)
[2022-11-09] MEDS: CLOPIDOGREL 300 MG (PLAVIX) TABLET PO ONE (08:37)
[2022-11-09 10:32] VITALS: BP 133/84
== END 2022-11-09 10:37 | disposition short-term general hospital (02) ==
LOC: EDUNIT# 07:34 → ER FS 07:36
DX: I21.4 Non-ST elevation (NSTEMI) myocardial infarction (principal); I25.119 Atherosclerotic heart disease of native coronary artery with unspecified angina pectoris; I10 Essential (primary) hypertension; E11.9 Type 2 diabetes mellitus without complications; Z79.4 Long term (current) use of insulin; Z95.1 Presence of aortocoronary bypass graft
CPT/HCPCS: 36415; 71045; 80053; 83690; 83735; 83880; 84484; 85025; 85379; 85610; 85730; 93005; 93041